=== PATIENT | male | born 1950 | race Caucasian/White ===

== ENCOUNTER → 2018-07-17 | Outpatient (REF) ==
[~2018-07-17] MED LIST: ASPIRIN 81M81 MG/TA2 PO; CELEXA 20MG20 MG/TAB PO; DESYREL 50MG50 MG PO; NORCO 325 MG-51 TAB PO; PRILOSEC 20MG20 MG PO; ZOCOR 40MG40 MG PO
== END ==
LOC: ZLAB.WCH 15:48
DX: Z01.89 Encounter for other specified special examinations (principal)
CPT/HCPCS: G0103

== ENCOUNTER → 2018-08-20 | Outpatient (CLI) | payer MEDICARE, BC | LOC: COL.VAS 13:43 | DX: M79.89 Other specified soft tissue disorders (principal) ==

== ENCOUNTER 2021-03-18 10:30 | Outpatient (RCR) | payer MEDICARE, BC | END 2021-03-19 09:37 | disposition home or self-care (01) | LOC: MKS.ESL.PT 10:30 | DX: M25.572 Pain in left ankle and joints of left foot (principal) ==

== ENCOUNTER 2024-02-20 07:20 | Day surgery (SDC) | payer MEDICARE, BC ==
[2024-02-20] VITALS (12 sets, daily range): BP systolic 101–148; BP diastolic 57–80; PULSE 59–81; TEMP 97.6–98.2
[~2024-02-20] VITALS: Ht 180.3 cm; Wt 82.8 kg
[~2024-02-20 07:20] MED LIST changes: +Acetaminophen 500 MG TAB PO SCH; +Celecoxib 200 MG CAP PO SCH; +Famotidine 20 MG TAB PO SCH; +Gabapentin 100 MG CAP PO SCH; +LR 1,000 ML IV SCH; +Metoclopramide 10 MG TAB PO SCH
[2024-02-20] MEDS ORDERED: Lidocaine PF 2% (20 MG/ML) 5 ML VIAL ONE ×2 (08:16→08:17)
[2024-02-20] MEDS ORDERED: Rocuronium 50 MG/5 ML Multi-Dose VIAL ONE ×2 (08:16→09:14)
[2024-02-20] MEDS ORDERED: NS 10 ML IV ONE (08:17)
[2024-02-20] MEDS ORDERED: Ondansetron 4 MG/2 ML VIAL ONE (08:17)
[2024-02-20] MEDS ORDERED: dexAMETHasone 10 MG/ML VIAL ONE (08:17)
[2024-02-20 08:27] LABS: HEMOGLOBIN 14.5 g/dl (13.5-18.0); MEAN CELL VOLUME 83 fl (80.0-100.0); MEAN CORPUSCULAR HEMOGLOBIN 30 pg (27-31); MEAN CORPUSCULAR HGB CONC 36 g/dl (33.0-37.0); MEAN PLATELET VOLUME 9.4 fl (7.4-10.4); PLATELET COUNT 182 K/mm3 (130-400); RED BLOOD COUNT 4.83 M/mm3 (4.20-5.60); REDCELL DISTRIBUTION WIDTH-CV 11.8 % (11.5-14.5)
[2024-02-20 08:48] LABS: CALCIUM 9.3 mg/dL (8.4-10.2); CREATININE, serum 1.16 mg/dL (0.72-1.25); POTASSIUM 3.8 mEq/L (3.5-4.5)
[2024-02-20] MEDS ORDERED: CELEBREX 1100 MG/CAP (08:54)
[2024-02-20] MEDS ORDERED: fentaNYL 50 MCG/ML 2 ML VIAL ONE (08:57)
[2024-02-20] MEDS ORDERED: ePHEDrine 50 MG/ML VIAL ONE (09:17)
--- NOTE | 2024-02-20 09:20 | NUR ---
0730 Patient ambulatory to bay 1 with steady gait, breathing even and unlabored. Pt is alert and oriented, accompanied by his . Consents reviewed and signed by the patient. IV established. Blood specimen obtained with IV start and sent to lab. LR infusion via dial a flow at [facility]. Call light in reach. Warm blanket provided.
[2024-02-20] MEDS ORDERED: Topical Skin Adhesive 1 EACH (1 ML) TOP ONE (09:26)
[2024-02-20] MEDS ORDERED: Ondansetron 4 MG/2 ML VIAL IV PRN ×2 (10:30→13:30)
[2024-02-20] MEDS ORDERED: hydrALAZINE 20 MG/ML 1 ML VIAL IV PRN (10:30)
[2024-02-20] MEDS ORDERED: HYDROmorphone 1 MG/1 ML SYRINGE [PACU/SDC ONLY] IV PRN ×2 (10:30)
[2024-02-20] MEDS ORDERED: fentaNYL 50 MCG/ML 1 ML SYRINGE/VIAL [PACU/SDC ONLY] IV PRN (10:30)
[2024-02-20] MEDS ORDERED: Ketorolac 15 MG/ML VIAL IV ONE (13:13)
[2024-02-20] MEDS ORDERED: Morphine 4 MG/ML VIAL IV PRN (13:30)
[2024-02-20] MEDS ORDERED: oxyCODONE 5 MG TAB PO PRN ×2 (13:30)
[2024-02-20] MEDS ORDERED: Naloxone 0.4 MG/ML VIAL IV PRN (13:30)
[2024-02-20] MEDS ORDERED: LR 1,000 ML IV SCH (13:30)
--- NOTE | 2024-02-20 13:55 | NUR ---
PATIENT TO FLOOR AT APPROXIMATELY 1340. POST OP VITALS RUNNING AND WNL. POST OP FLUIDS HANGING VIA GRAVITY INTO LEFT FA IV. LAPS X6 WITH SKIN GLUE. PATIENT REPORTS MILD PAIN, DENIES NEED FOR ANY PAIN MEDICATION. PATIENT EATING ICE CHIPS, REFUSING SIPS OF WATER JUST YET. PATIENT DENIES ANY FURTHER NEEDS. CALL LIGHT IN REACH.
[2024-02-20] MEDS ORDERED: Ketorolac 15 MG/ML VIAL IV SCH (14:00)
--- NOTE | 2024-02-20 14:23 | NUR ---
soda worker met with patient and Anabela ([phone]) to complete intake. Patient confirmed that they live in [facility], he sees Dr. Burt as his PCP and he uses [facility]. Patient denies having any DME at home and states he is independent with all activities. Patient stated he believes he completed a DPOA document naming his as agent but it is not on file. Encouraged to bring copy for patient's chart if she is able. Discharge plan: Home
[2024-02-20] MEDS ORDERED: Acetaminophen 500 MG TAB PO SCH (14:29)
--- NOTE | 2024-02-20 15:16 | NUR ---
PATIENT TAKING SIPS OF WATER, REFUSES TO ADVANCE DIET REPORTING "NOT UP FOR IT!" PATIENT ENCOURAGED TO REST AND CONTINUE WITH PO LIQUIDS. WILL TRY AGAIN WITH ADVANCING DIET. IV FLUIDS INFUSING INTO LEFT FA AT 125ML/HOUR. GALARZA TO DD WITH RED COLORED OUTPUT. AT BEDSIDE. POST OP VITALS RUNNING. CALL LIGHT IN REACH.
[2024-02-20] MEDS ORDERED: ceFAZolin 2 G in Water For Injection,Sterile 20 ML IV SCH (18:00)
[2024-02-20] MEDS ORDERED: Atorvastatin 20 MG TAB PO SCH (21:00)
[2024-02-20] MEDS ORDERED: traZODone 50 MG TAB PO SCH (21:00)
[2024-02-20] MEDS ORDERED: Simvastatin 40 MG **** subs to Atorvastatin 20 MG PO SCH (21:00)
--- NOTE | 2024-02-20 21:05 | NUR ---
Patient assessed at this time, see shift assessment, reports pain to abdomen, PS of 2/10, 6 lap sites to abdomen edges well approximated, ambulated the hallway, still with lara to dependent drainage, IV to left forearm infusing well, LR at 125cc/hr, denies further needs, call light and personal items within reach, will continue to monitor.
[2024-02-21] VITALS (7 sets, daily range): BP systolic 114–154; BP diastolic 49–75; PULSE 60–69; TEMP 98–98.4
--- NOTE | 2024-02-21 06:20 | NUR ---
Patient ambulated the hallway, doing fine, denies further needs, still with IV infusing well on left forearm.
[2024-02-21 06:45] LABS: HEMOGLOBIN 12.6 g/dl (13.5-18.0)
[2024-02-21 06:53] LABS: HEMATOCRIT 35.3 % (42.0-52.0)
[2024-02-21] MEDS ORDERED: Omeprazole 20 MG **** subs to Pantoprazole 40 MG PO SCH (07:00)
[2024-02-21] MEDS ORDERED: Citalopram 20 MG TAB PO SCH (09:00)
--- NOTE | 2024-02-21 10:44 | NUR ---
PATIENT ALERT AND ORIENTED X4. VSS. PATIENT HERE FOR MIA PROSTATECTOMY. LAPS X6 CDI WITH SKIN GLUE. IV TO LEFT FA INT. GALARZA TO DD WITH LIGHT PEACH AND SLIGHTLY CLOUDY. PATIENT DENIES ANY PAIN THIS AM. PATIENT WALKING HALLS. NO FURTHER NEEDS. CALL LIGHT IN REACH.
[2024-02-21] MEDS ORDERED: Sennosides/Docusate 8.6-50 MG TAB PO SCH (16:53)
--- NOTE | 2024-02-21 18:43 | NUR ---
DISCHARGE INSTRUCTIONS PROVIDED. PATIENT EDUCATION GIVEN. IV DC'D. FOLLOW UP APPOINTMENT DISCUSSED. MEDICATIONS REVIEWED. GALARZA CATH CARE EDUCATION PROVIDED WELL CLEANING, EMPTYING, CHANGING BAG. PATIENT DENIES ANY QUESTIONS OR CONCERNS. PATIENT ESCORTED OUT VIA WHEELCHAIR.
== END 2024-02-21 18:44 | disposition home or self-care (01) ==
LOC: SDCO 07:20 → SURG 13:48 → SDCO 02-21 18:44
PROVIDERS: Nurse Anesthetist, Certified Registered; Urology
DX: C61 Malignant neoplasm of prostate (principal); K21.9 Gastro-esophageal reflux disease without esophagitis; R73.03 Prediabetes; Z87.891 Personal history of nicotine dependence; Z89.029 Acquired absence of unspecified finger(s)
CPT/HCPCS: OP; A4314; A9284; J0690; J1100; J1170; J1885; J2405; J2704; J3010; J7120